=== PATIENT | male | born 1990 | race Caucasian/White ===

== ENCOUNTER 2017-09-02 21:02 | Emergency (ER) | payer SELFPAY ==
[2017-09-02 21:39] VITALS: BP 106/67; PULSE 68; TEMP 98.9; O2SAT 99
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
[2017-09-02 22:50] VITALS: RESP 20
== END 2017-09-02 22:49 | disposition home or self-care (01) ==
LOC: C.ER 21:02
DX: S30.1XXA Contusion of abdominal wall, initial encounter (principal); S80.11XA Contusion of right lower leg, initial encounter; W19.XXXA Unspecified fall, initial encounter; Y93.55 Activity, bike riding